=== PATIENT | male | born 1945 | race Hispanic/Latino ===

== ENCOUNTER 2020-10-22 18:48 | Inpatient (IN) | payer MEDICARE ==
[~2020-10-22] VITALS: Ht 157.5 cm; Wt 85.8 kg
[2020-10-22 19:26] LABS: BASOPHILS % (AUTO) 0.3 % (0.0-5.0); EOSINOPHILS % (AUTO) 0.6 % (0.0-8.0); HEMATOCRIT 44.9 % (42-54); LYMPHOCYTES % (AUTO) 5.4 % (21.0-51.0); MEAN CORPUSCULAR HEMOGLOBIN 27.4 pg (27.0-33.0); MEAN CORPUSCULAR HGB CONC 33.9 g/dL (32.0-36.0); MEAN CORPUSCULAR VOLUME 80.9 fL (79-99); MONOCYTES % (AUTO) 6.9 % (3.0-13.0); NEUTROPHILS % (AUTO) 86.3 % (40.0-77.0); PLATELET COUNT (AUTO) 245 K/uL (130-400); RED BLOOD CELL COUNT(AUTO) 5.55 MIL/uL (4.50-6.20); RED CELL DISTRIBUTION WIDTH 16.5 % (11.0-15.5); WHITE BLOOD COUNT (AUTO) 17.1 K/uL (4.8-10.8)
[2020-10-22 19:41] LABS: INR 1.13 (0.85-1.15)
[2020-10-22 19:42] LABS: PARTIAL THROMBOPLASTIN TIME 35.9 SEC (26.3-35.5)
[2020-10-22] MEDS ORDERED: ALBUTEROL INHALER 90MCG/INH IH ONE (19:50)
[2020-10-22 19:59] LABS: CARBON DIOXIDE 22 mmol/L (21-32); CHLORIDE 92 mmol/L (101-111); CREATININE 2.1 mg/dL (0.5-1.5); GLOMERULAR FILTR. RATE CALC 33 mL/min (>60); GLUCOSE,RANDOM 197 mg/dL (70-105); POTASSIUM 4.1 mmol/L (3.5-5.1); SODIUM SERUM 129 mmol/L (136-145); UREA NITROGEN, BLOOD 54 mg/dL (7-18)
[2020-10-22 20:10] LABS: ALANINE AMINOTRANSFERASE 18 U/L (12-78); ALBUMIN 3.1 g/dL (3.5-5.0); ASPARTATE AMINOTRANSFERASE 30 U/L (10-37); BILIRUBIN,TOTAL 0.6 mg/dL (0.2-1.0); CREATINE KINASE, TOTAL 116 U/L (21-232); MYOGLOBIN 204 ng/mL (10-92); TOTAL PROTEIN, SERUM 8.1 g/dL (6.0-8.3); TROPONIN I < 0.04 ng/mL (0.00-0.06)
[2020-10-22] MEDS ORDERED: CEFTRIAXONE 2GM VIAL ONE (20:17)
[2020-10-22] MEDS ORDERED: DEXAMETHASONE SOD PHOSPHATE 10MG/ML 1ML VIAL ONE (20:17)
[2020-10-22] MEDS ORDERED: AZITHROMYCIN 500MG+NS 250ML 250 ML IV ONE (20:17)
[2020-10-22] MEDS ORDERED: 0.9%NACL 50ML 50 ML IV ONE (20:20)
[2020-10-22] MEDS ORDERED: MORPHINE 2 MG SYG ONE (23:09)
[2020-10-23] MEDS ORDERED: PHARMACY COMMUNICATION MISC SCH (00:30)
[2020-10-23 02:04] LABS: APPEARANCE,URINE Clear (CLEAR); BILIRUBIN,URINE Negative (NEGATIVE); COLOR,URINE Yellow (YELLOW); GLUCOSE, URINE (UA) Negative (NEGATIVE); KETONES,URINE Negative (NEGATIVE); LEUKOCYTE ESTERASE ,URINE Negative (NEGATIVE); NITRATE,URINE Negative (NEGATIVE); OCCULT BLOOD,URINE Small (NEGATIVE); PROTEIN,URINE POS 2+ mg/dL (NEGATIVE); UROBILINOGEN,URINE 0.2 mg/dL (0.2-1.0)
[2020-10-23 02:21] LABS: ALBUMIN 2.9 g/dL (3.5-5.0); BILIRUBIN,TOTAL 0.5 mg/dL (0.2-1.0); CREATININE 2.1 mg/dL (0.5-1.5); POTASSIUM 4.9 mmol/L (3.5-5.1); TOTAL PROTEIN, SERUM 7.1 g/dL (6.0-8.3)
[2020-10-23 02:42] LABS: CRP QUANTITATIVE 356.5 mg/L (0.00-9.0)
[2020-10-23 02:51] LABS: BACTERIA,URINE Few /HPF (None Seen); RBC,URINE 0-1 /HPF (0-1); WBC,URINE 0-1 /HPF (0-1)
[2020-10-23 05:06] VITALS: BP 163/70
[2020-10-23] MEDS ORDERED: 0.9% NACL 250ML 250 ML IV ONE (06:26)
[2020-10-23] MEDS ORDERED: HYDRALAZINE 20MG/ML VIAL IV PRN (07:15)
[2020-10-23] MEDS ORDERED: ACETAMINOPHEN 325 MG TAB PO PRN (07:29)
[2020-10-23] MEDS ORDERED: ONDANSETRON 4MG INJ IV PRN (07:30)
[2020-10-23] MEDS ORDERED: 0.9%NACL 1000ML 1,000 ML IV SCH (07:30)
[2020-10-23] MEDS: DOXYCYCLINE 100MG+NS 250ML 250 ML IV SCH ×2 (07:30→21:37)
[2020-10-23] MEDS ORDERED: GUAIFENESIN-CODEINE 5 ML SYRUP PO PRN (07:33)
[2020-10-23] MEDS ORDERED: LUBIPROSTONE 24 MCG CAP PO PRN (07:34)
[2020-10-23] MEDS ORDERED: DEXAMETHASONE SOD PHOSPHATE 4 MG/ML 1ML VIAL IVP SCH (07:45)
[2020-10-23 07:51] VITALS: BP 145/73
[2020-10-23] MEDS ORDERED: ERGOCALCIFEROL (VITAMIN D2) 50,000 UNIT CAPSULE PO SCH (09:00)
[2020-10-23] MEDS: ZINC SULFATE 220 CAPSULE PO SCH (09:55)
[2020-10-23] MEDS: FAMOTIDINE 20MG VIAL IV SCH (09:55)
[2020-10-23] MEDS: ASCORBIC ACID 500 MG TAB PO SCH (09:55)
[2020-10-23] MEDS: ENOXAPARIN SODIUM 40 MG/0.4 ML SYRINGE SQ SCH (09:55)
[2020-10-23] MEDS ORDERED: GLIP10TA9 PO (10:38)
[2020-10-23] MEDS ORDERED: SITA25TA5 PO (10:38)
[2020-10-23] MEDS ORDERED: METF-446 PO (10:38)
[2020-10-23] MEDS ORDERED: ASPI-1197 PO (10:38)
[2020-10-23] MEDS ORDERED: ATEN1TAB4 PO (10:38)
[2020-10-23] MEDS ORDERED: CLOP75TA14 PO (10:38)
[2020-10-23] MEDS ORDERED: ATOR40TA69 PO (10:38)
[2020-10-23] MEDS ORDERED: LOSA100T58 PO (10:38)
[2020-10-23] MEDS: INSULIN HUMULIN R 100 UNIT/ML 3ML SQ SCH ×5 (11:30→21:50)
[2020-10-23] MEDS: CLOPIDOGREL 75MG TAB PO SCH (11:38)
[2020-10-23] MEDS: ATENOLOL 50 MG TABLET PO SCH ×2 (11:38→21:38)
[2020-10-23] MEDS: ASPIRIN 81MG CHEW TAB PO SCH (11:38)
[2020-10-23 11:41] VITALS: BP 185/100
[2020-10-23] MEDS: ACETAMINOPHEN 325 MG TAB PO PRN (13:25)
[2020-10-23 15:58] VITALS: BP 154/86
[2020-10-23] MEDS ORDERED: MORPHINE 2 MG SYG IM ONE (16:30)
[2020-10-23 19:26] VITALS: BP 126/66
[2020-10-23] MEDS ORDERED: ACETAMINOPHEN WITH CODEINE 1 TAB TAB PO PRN (21:15)
[2020-10-23] MEDS ORDERED: LORAZEPAM 2 MG/ML 1 ML VIAL IVP PRN (21:15)
[2020-10-23] MEDS: CEFTRIAXONE 1G VIAL IV SCH (21:37)
[2020-10-23] MEDS: INSULIN GLARGINE 100 UNITS/ML 10 ML VIAL SQ SCH (21:51)
[2020-10-23] MEDS ORDERED: FUROSEMIDE 100MG VIAL IVP STA (23:08)
[2020-10-23] MEDS ORDERED: FENTANYL CITRATE PF 0.05 MG/ML 1,000 MCG in 0.9%NACL 100ML 100 ML IVPB PRN (23:15)
[2020-10-23] MEDS ORDERED: NOREPINEPHRIN 4MG/NS 250ML 250 ML IV PRN (23:15)
[2020-10-23] MEDS ORDERED: MIDAZOLAM 100MG-0.9% NS 100ML 50 ML IV PRN (23:15)
[2020-10-23 23:50] VITALS: BP 145/70
[2020-10-24] VITALS (59 sets, daily range): BP systolic 86–147; BP diastolic 35–70
[2020-10-24 00:41] LABS: ABG BASE EXCESS -7.9 mmol/L (-2.0-3.0); ABG HCO3 19.5 mmol/L (21.0-28.0); ABG OXYGEN SATURATION 91.2 % (95.0-99.0); ABG PCO2 47 mmHg (35-48)
[2020-10-24 00:51] LABS: BASOPHILS % (AUTO) 0.2 % (0.0-5.0); EOSINOPHILS % (AUTO) 0.2 % (0.0-8.0); HEMATOCRIT 47.2 % (42-54); LYMPHOCYTES % (AUTO) 1.6 % (21.0-51.0); MEAN CORPUSCULAR HEMOGLOBIN 26.8 pg (27.0-33.0); MEAN CORPUSCULAR HGB CONC 32.4 g/dL (32.0-36.0); MEAN CORPUSCULAR VOLUME 82.8 fL (79-99); MONOCYTES % (AUTO) 5.7 % (3.0-13.0); NEUTROPHILS % (AUTO) 91.4 % (40.0-77.0); PLATELET COUNT (AUTO) 259 K/uL (130-400); RED CELL DISTRIBUTION WIDTH 16.7 % (11.0-15.5); WHITE BLOOD COUNT (AUTO) 20.3 K/uL (4.8-10.8)
[2020-10-24 04:10] LABS: ABG BASE EXCESS -5.3 mmol/L (-2.0-3.0); ABG OXYGEN SATURATION 96.1 % (95.0-99.0); ABG PCO2 38 mmHg (35-48)
[2020-10-24 04:43] LABS: ALBUMIN 2.6 g/dL (3.5-5.0); BILIRUBIN,TOTAL 0.3 mg/dL (0.2-1.0); CREATININE 2.4 mg/dL (0.5-1.5); POTASSIUM 3.8 mmol/L (3.5-5.1); TOTAL PROTEIN, SERUM 7.3 g/dL (6.0-8.3)
[2020-10-24 05:42] LABS: CRP QUANTITATIVE 275.8 mg/L (0.00-9.0)
[2020-10-24] MEDS: INSULIN HUMULIN R 100 UNIT/ML 3ML SQ SCH ×6 (06:35→17:29)
[2020-10-24] MEDS: DOXYCYCLINE 100MG+NS 250ML 250 ML IV SCH ×2 (08:19→18:41)
[2020-10-24] MEDS: CLOPIDOGREL 75MG TAB PO SCH (08:27)
[2020-10-24] MEDS: ENOXAPARIN SODIUM 40 MG/0.4 ML SYRINGE SQ SCH (08:28)
[2020-10-24] MEDS: ASCORBIC ACID 500 MG TAB PO SCH (08:28)
[2020-10-24] MEDS: FAMOTIDINE 20MG VIAL IV SCH (08:28)
[2020-10-24] MEDS: ASPIRIN 81MG CHEW TAB PO SCH (08:28)
[2020-10-24] MEDS: ATENOLOL 50 MG TABLET PO SCH ×2 (08:39→20:35)
[2020-10-24] MEDS: ZINC SULFATE 220 CAPSULE PO SCH (08:39)
[2020-10-24] MEDS ORDERED: DEXAMETHASONE SOD PHOSPHATE 4 MG/ML 1ML VIAL IVP SCH ×2 (09:00)
[2020-10-24] MEDS: DEXAMETHASONE SOD PHOSPHATE 4 MG/ML 1ML VIAL IVP SCH ×2 (09:47→21:03)
[2020-10-24] MEDS ORDERED: PROPOFOL 1000 MG/100 ML IV SCH (10:00)
[2020-10-24] MEDS: PROPOFOL 1000 MG/100 ML 100 ML IV PRN ×2 (11:13→18:20)
[2020-10-24] MEDS: CEFTRIAXONE 1G VIAL IV SCH (21:03)
[2020-10-25] VITALS (46 sets, daily range): BP systolic 91–185; BP diastolic 35–65
[2020-10-25] MEDS: INSULIN HUMULIN R 100 UNIT/ML 3ML SQ SCH ×7 (00:09→17:10)
[2020-10-25] MEDS: INSULIN GLARGINE 100 UNITS/ML 10 ML VIAL SQ SCH (00:09)
[2020-10-25 03:29] LABS: ABG BASE EXCESS -7.7 mmol/L (-2.0-3.0); ABG OXYGEN SATURATION 93.1 % (95.0-99.0); ABG PCO2 49 mmHg (35-48)
[2020-10-25 04:37] LABS: BASOPHILS % (AUTO) 0.2 % (0.0-5.0); EOSINOPHILS % (AUTO) 0.1 % (0.0-8.0); HEMATOCRIT 42.5 % (42-54); LYMPHOCYTES % (AUTO) 4.1 % (21.0-51.0); MEAN CORPUSCULAR HEMOGLOBIN 26.5 pg (27.0-33.0); MEAN CORPUSCULAR VOLUME 82.8 fL (79-99); MONOCYTES % (AUTO) 4.5 % (3.0-13.0); PLATELET COUNT (AUTO) 256 K/uL (130-400); RED BLOOD CELL COUNT(AUTO) 5.13 MIL/uL (4.50-6.20)
[2020-10-25 05:04] LABS: ALBUMIN 2.2 g/dL (3.5-5.0); BILIRUBIN,TOTAL 0.2 mg/dL (0.2-1.0); CREATININE 3.6 mg/dL (0.5-1.5); POTASSIUM 4.8 mmol/L (3.5-5.1); TOTAL PROTEIN, SERUM 6.6 g/dL (6.0-8.3)
[2020-10-25 06:03] LABS: CRP QUANTITATIVE 379.3 mg/L (0.00-9.0)
[2020-10-25] MEDS: DOXYCYCLINE 100MG+NS 250ML 250 ML IV SCH ×2 (06:33→20:29)
[2020-10-25] MEDS: DEXAMETHASONE SOD PHOSPHATE 4 MG/ML 1ML VIAL IVP SCH ×2 (08:18→20:30)
[2020-10-25] MEDS: FAMOTIDINE 20MG VIAL IV SCH (08:18)
[2020-10-25] MEDS: ZINC SULFATE 220 CAPSULE PO SCH (08:19)
[2020-10-25] MEDS: CLOPIDOGREL 75MG TAB PO SCH (08:19)
[2020-10-25] MEDS: ENOXAPARIN SODIUM 40 MG/0.4 ML SYRINGE SQ SCH (08:19)
[2020-10-25] MEDS: ASPIRIN 81MG CHEW TAB PO SCH (08:19)
[2020-10-25] MEDS: ASCORBIC ACID 500 MG TAB PO SCH (08:19)
[2020-10-25] MEDS: PROPOFOL 1000 MG/100 ML 100 ML IV PRN ×2 (08:24→17:08)
[2020-10-25] MEDS: ATENOLOL 50 MG TABLET PO SCH ×2 (09:00→20:30)
[2020-10-25] MEDS: VECURONIUM 10MG/10ML 50 MG in 0.9%NACL 50ML 50 ML IV SCH (13:04)
[2020-10-25] MEDS: FENTANYL 2500MCG+NS 250ML 250 ML IV SCH (15:02)
[2020-10-25] MEDS: CEFTRIAXONE 1G VIAL IV SCH (20:29)
[2020-10-26] VITALS (38 sets, daily range): BP systolic 104–188; BP diastolic 49–85
[2020-10-26] MEDS: INSULIN HUMULIN R 100 UNIT/ML 3ML SQ SCH ×7 (00:28→17:55)
[2020-10-26] MEDS: INSULIN GLARGINE 100 UNITS/ML 10 ML VIAL SQ SCH (00:30)
[2020-10-26 03:50] LABS: ABG BASE EXCESS -11.2 mmol/L (-2.0-3.0); ABG HCO3 15.3 mmol/L (21.0-28.0); ABG OXYGEN SATURATION 99.7 % (95.0-99.0); ABG PCO2 37 mmHg (35-48)
[2020-10-26 04:52] LABS: BASOPHILS % (AUTO) 0.5 % (0.0-5.0); EOSINOPHILS % (AUTO) 0.1 % (0.0-8.0); LYMPHOCYTES % (AUTO) 7.3 % (21.0-51.0); MEAN CORPUSCULAR HEMOGLOBIN 26.7 pg (27.0-33.0); MEAN CORPUSCULAR HGB CONC 31.6 g/dL (32.0-36.0); MEAN CORPUSCULAR VOLUME 84.6 fL (79-99); MONOCYTES % (AUTO) 9.3 % (3.0-13.0); NEUTROPHILS % (AUTO) 78.5 % (40.0-77.0); PLATELET COUNT (AUTO) 229 K/uL (130-400); RED BLOOD CELL COUNT(AUTO) 5.32 MIL/uL (4.50-6.20); WHITE BLOOD COUNT (AUTO) 17.7 K/uL (4.8-10.8)
[2020-10-26 05:14] LABS: ALBUMIN 2.1 g/dL (3.5-5.0); BILIRUBIN,TOTAL 0.3 mg/dL (0.2-1.0); POTASSIUM 4.8 mmol/L (3.5-5.1); TOTAL PROTEIN, SERUM 6.6 g/dL (6.0-8.3)
[2020-10-26] MEDS: DOXYCYCLINE 100MG+NS 250ML 250 ML IV SCH ×2 (06:16→18:44)
[2020-10-26] MEDS: PROPOFOL 1000 MG/100 ML 100 ML IV PRN ×2 (08:41→15:17)
[2020-10-26] MEDS: ZINC SULFATE 220 CAPSULE PO SCH (08:43)
[2020-10-26] MEDS: ASCORBIC ACID 500 MG TAB PO SCH (08:43)
[2020-10-26] MEDS: VECURONIUM 10MG/10ML 50 MG in 0.9%NACL 50ML 50 ML IV SCH (08:43)
[2020-10-26] MEDS: FAMOTIDINE 20MG VIAL IV SCH (08:44)
[2020-10-26] MEDS: ASPIRIN 81MG CHEW TAB PO SCH (08:44)
[2020-10-26] MEDS: CLOPIDOGREL 75MG TAB PO SCH (08:44)
[2020-10-26] MEDS: DEXAMETHASONE SOD PHOSPHATE 4 MG/ML 1ML VIAL IVP SCH ×2 (08:44→21:42)
[2020-10-26] MEDS: ENOXAPARIN SODIUM 40 MG/0.4 ML SYRINGE SQ SCH ×2 (08:45→21:44)
[2020-10-26] MEDS: ATENOLOL 50 MG TABLET PO SCH ×2 (09:34→21:00)
[2020-10-26 10:32] LABS: INR 1.03 (0.85-1.15)
[2020-10-26 10:33] LABS: PARTIAL THROMBOPLASTIN TIME 32.7 SEC (26.3-35.5)
[2020-10-26] MEDS ORDERED: FUROSEMIDE 40MG VIAL IV SCH (11:30)
[2020-10-26] MEDS: FENTANYL 2500MCG+NS 250ML 250 ML IV SCH (15:15)
[2020-10-26] MEDS: CEFTRIAXONE 1G VIAL IV SCH (21:42)
[2020-10-26] MEDS ORDERED: SODIUM BICARB 50MEQ 50ML VIAL 150 ML ONE (23:40)
[2020-10-26] MEDS ORDERED: SODIUM BICARB 50MEQ 50ML VIAL 50 ML ONE (23:45)
[2020-10-26] MEDS ORDERED: PHARMACY COMMUNICATION MISC SCH (23:45)
[2020-10-27] VITALS (35 sets, daily range): BP systolic 85–132; BP diastolic 40–67
[2020-10-27] MEDS: INSULIN HUMULIN R 100 UNIT/ML 3ML SQ SCH ×7 (00:11→17:06)
[2020-10-27] MEDS: INSULIN GLARGINE 100 UNITS/ML 10 ML VIAL SQ SCH (00:12)
[2020-10-27 03:57] LABS: ABG BASE EXCESS -9.4 mmol/L (-2.0-3.0); ABG HCO3 19.3 mmol/L (21.0-28.0); ABG OXYGEN SATURATION 96.5 % (95.0-99.0); ABG PCO2 52 mmHg (35-48)
[2020-10-27] MEDS: PROPOFOL 1000 MG/100 ML 100 ML IV PRN ×3 (04:12→17:11)
[2020-10-27] MEDS: ENOXAPARIN SODIUM 40 MG/0.4 ML SYRINGE SQ SCH ×2 (08:42→20:52)
[2020-10-27] MEDS: FAMOTIDINE 20MG VIAL IV SCH (08:43)
[2020-10-27] MEDS: CLOPIDOGREL 75MG TAB PO SCH (08:43)
[2020-10-27] MEDS: ATENOLOL 50 MG TABLET PO SCH (08:43)
[2020-10-27] MEDS: ASPIRIN 81MG CHEW TAB PO SCH (08:44)
[2020-10-27] MEDS: ASCORBIC ACID 500 MG TAB PO SCH (08:44)
[2020-10-27] MEDS: DEXAMETHASONE SOD PHOSPHATE 4 MG/ML 1ML VIAL IVP SCH ×2 (08:44→20:52)
[2020-10-27] MEDS: ZINC SULFATE 220 CAPSULE PO SCH (08:44)
[2020-10-27 11:15] LABS: CREATININE 3.6 mg/dL (0.5-1.5); POTASSIUM 4.9 mmol/L (3.5-5.1)
[2020-10-27 12:37] LABS: ABG BASE EXCESS -1.9 mmol/L (-2.0-3.0); ABG OXYGEN SATURATION 93.5 % (95.0-99.0); ABG PCO2 40 mmHg (35-48)
[2020-10-27] MEDS: DOXYCYCLINE 100MG+NS 250ML 250 ML IV SCH ×2 (13:47→20:52)
[2020-10-27] MEDS: PANTOPRAZOLE 40 MG/VIAL IVP SCH (13:47)
[2020-10-27] MEDS: FENTANYL 2500MCG+NS 250ML 250 ML IV SCH (17:31)
[2020-10-27] MEDS: CEFTRIAXONE 1G VIAL IV SCH (20:52)
[2020-10-28] VITALS (33 sets, daily range): BP systolic 82–197; BP diastolic 42–96
[2020-10-28 03:42] LABS: ABG BASE EXCESS -4.1 mmol/L (-2.0-3.0); ABG HCO3 20.5 mmol/L (21.0-28.0); ABG OXYGEN SATURATION 92.2 % (95.0-99.0); ABG PCO2 36 mmHg (35-48)
[2020-10-28 05:55] LABS: BASOPHILS % (AUTO) 0.1 % (0.0-5.0); HEMATOCRIT 40.5 % (42-54); LYMPHOCYTES % (AUTO) 4.8 % (21.0-51.0); MEAN CORPUSCULAR HEMOGLOBIN 26.8 pg (27.0-33.0); MEAN CORPUSCULAR HGB CONC 33.1 g/dL (32.0-36.0); MONOCYTES % (AUTO) 6.8 % (3.0-13.0); NEUTROPHILS % (AUTO) 85.1 % (40.0-77.0); NUCLEATED RED BLOOD CELLS 0.1 % (0.0-0.19); PLATELET COUNT (AUTO) 205 K/uL (130-400); WHITE BLOOD COUNT (AUTO) 16.4 K/uL (4.8-10.8)
[2020-10-28 06:15] LABS: ALBUMIN 1.8 g/dL (3.5-5.0); BILIRUBIN,TOTAL 0.3 mg/dL (0.2-1.0); CRP QUANTITATIVE 51.9 mg/L (0.00-9.0); POTASSIUM 4.6 mmol/L (3.5-5.1); TOTAL PROTEIN, SERUM 5.6 g/dL (6.0-8.3)
[2020-10-28] MEDS: INSULIN HUMULIN R 100 UNIT/ML 3ML SQ SCH ×8 (06:43→21:00)
[2020-10-28] MEDS: DOXYCYCLINE 100MG+NS 250ML 250 ML IV SCH ×2 (06:45→19:37)
[2020-10-28] MEDS: ASCORBIC ACID 500 MG TAB PO SCH (08:36)
[2020-10-28] MEDS: ASPIRIN 81MG CHEW TAB PO SCH (08:36)
[2020-10-28] MEDS: CLOPIDOGREL 75MG TAB PO SCH (08:37)
[2020-10-28] MEDS: ZINC SULFATE 220 CAPSULE PO SCH (08:37)
[2020-10-28] MEDS: DEXAMETHASONE SOD PHOSPHATE 4 MG/ML 1ML VIAL IVP SCH ×2 (08:37→21:15)
[2020-10-28] MEDS: ENOXAPARIN SODIUM 40 MG/0.4 ML SYRINGE SQ SCH ×2 (08:38→21:15)
[2020-10-28] MEDS: PANTOPRAZOLE 40 MG/VIAL IVP SCH (08:38)
[2020-10-28] MEDS: WATER FOR INJECTION STERILE IV SCH ×2 (14:16→22:55)
[2020-10-28] MEDS: SODIUM BICARB IV SCH ×2 (14:16→22:55)
[2020-10-28] MEDS: FENTANYL 2500MCG+NS 250ML 250 ML IV SCH (20:19)
[2020-10-28] MEDS: CEFTRIAXONE 1G VIAL IV SCH (21:15)
[2020-10-28] MEDS: INSULIN GLARGINE 100 UNITS/ML 10 ML VIAL SQ SCH ×2 (21:26)
[2020-10-29] VITALS (52 sets, daily range): BP systolic 102–188; BP diastolic 54–114
[2020-10-29] MEDS: ACETAMINOPHEN 325 MG TAB PO PRN (01:37)
[2020-10-29 04:17] LABS: BASOPHILS % (AUTO) 0.5 % (0.0-5.0); HEMATOCRIT 45.7 % (42-54); LYMPHOCYTES % (AUTO) 3.4 % (21.0-51.0); MEAN CORPUSCULAR HEMOGLOBIN 27.1 pg (27.0-33.0); MEAN CORPUSCULAR HGB CONC 33.5 g/dL (32.0-36.0); MEAN CORPUSCULAR VOLUME 80.9 fL (79-99); MONOCYTES % (AUTO) 5.8 % (3.0-13.0); NEUTROPHILS % (AUTO) 86.2 % (40.0-77.0); NUCLEATED RED BLOOD CELLS 0.1 % (0.0-0.19); PLATELET COUNT (AUTO) 279 K/uL (130-400); RED BLOOD CELL COUNT(AUTO) 5.65 MIL/uL (4.50-6.20); RED CELL DISTRIBUTION WIDTH 17.2 % (11.0-15.5); WHITE BLOOD COUNT (AUTO) 28.1 K/uL (4.8-10.8)
[2020-10-29 04:51] LABS: BILIRUBIN,DIRECT 0.1 mg/dL (0.0-0.3); BILIRUBIN,TOTAL 0.4 mg/dL (0.2-1.0); CREATININE 3.3 mg/dL (0.5-1.5); CRP QUANTITATIVE 46.5 mg/L (0.00-9.0); POTASSIUM 5.2 mmol/L (3.5-5.1)
[2020-10-29] MEDS: PROPOFOL 1000 MG/100 ML 100 ML IV PRN ×3 (04:54→21:11)
[2020-10-29] MEDS: INSULIN HUMULIN R 100 UNIT/ML 3ML SQ SCH ×7 (07:06→20:54)
[2020-10-29] MEDS: DOXYCYCLINE 100MG+NS 250ML 250 ML IV SCH ×2 (07:08→18:51)
[2020-10-29 07:47] LABS: ABG BASE EXCESS 1.8 mmol/L (-2.0-3.0); ABG HCO3 25.2 mmol/L (21.0-28.0); ABG OXYGEN SATURATION 93.7 % (95.0-99.0); ABG PCO2 36 mmHg (35-48)
[2020-10-29] MEDS: PANTOPRAZOLE 40 MG/VIAL IVP SCH (09:52)
[2020-10-29] MEDS: WATER FOR INJECTION STERILE IV SCH (09:52)
[2020-10-29] MEDS: SODIUM BICARB IV SCH (09:52)
[2020-10-29] MEDS: ASPIRIN 81MG CHEW TAB PO SCH (09:53)
[2020-10-29] MEDS: CLOPIDOGREL 75MG TAB PO SCH (09:53)
[2020-10-29] MEDS: ZINC SULFATE 220 CAPSULE PO SCH (09:53)
[2020-10-29] MEDS: ASCORBIC ACID 500 MG TAB PO SCH (09:53)
[2020-10-29] MEDS: DEXAMETHASONE SOD PHOSPHATE 4 MG/ML 1ML VIAL IVP SCH ×2 (09:54→20:22)
[2020-10-29] MEDS: ENOXAPARIN SODIUM 40 MG/0.4 ML SYRINGE SQ SCH ×2 (09:54→20:21)
[2020-10-29] MEDS: CEFTRIAXONE 1G VIAL IV SCH (20:22)
[2020-10-29] MEDS: INSULIN GLARGINE 100 UNITS/ML 10 ML VIAL SQ SCH (20:53)
[2020-10-30] VITALS (42 sets, daily range): BP systolic 85–169; BP diastolic 39–89
[2020-10-30] MEDS: [UNRECOGNIZED DRUG - OTHER] IV SCH ×4 (03:04→21:04)
[2020-10-30] MEDS: DEXMEDETOMIDINE HCL IV SCH ×4 (03:04→21:04)
[2020-10-30 04:39] LABS: BASOPHILS % (AUTO) 0.4 % (0.0-5.0); HEMATOCRIT 44.2 % (42-54); LYMPHOCYTES % (AUTO) 2.7 % (21.0-51.0); MEAN CORPUSCULAR HEMOGLOBIN 26.5 pg (27.0-33.0); MEAN CORPUSCULAR HGB CONC 32.6 g/dL (32.0-36.0); MEAN CORPUSCULAR VOLUME 81.4 fL (79-99); MONOCYTES % (AUTO) 7.3 % (3.0-13.0); NEUTROPHILS % (AUTO) 86.2 % (40.0-77.0); PLATELET COUNT (AUTO) 268 K/uL (130-400); RED BLOOD CELL COUNT(AUTO) 5.43 MIL/uL (4.50-6.20); RED CELL DISTRIBUTION WIDTH 16.9 % (11.0-15.5); WHITE BLOOD COUNT (AUTO) 27.8 K/uL (4.8-10.8)
[2020-10-30 04:57] LABS: ALBUMIN 1.9 g/dL (3.5-5.0); BILIRUBIN,TOTAL 0.3 mg/dL (0.2-1.0); CREATININE 3.2 mg/dL (0.5-1.5); CRP QUANTITATIVE 68.2 mg/L (0.00-9.0); POTASSIUM 4.4 mmol/L (3.5-5.1); TOTAL PROTEIN, SERUM 6.3 g/dL (6.0-8.3)
[2020-10-30] MEDS: DOXYCYCLINE 100MG+NS 250ML 250 ML IV SCH ×2 (06:05→18:38)
[2020-10-30] MEDS: INSULIN HUMULIN R 100 UNIT/ML 3ML SQ SCH ×7 (06:18→20:20)
[2020-10-30] MEDS: DOCUSATE NA 100MG/10ML UDCUP PO SCH (09:34)
[2020-10-30] MEDS: ASPIRIN 81MG CHEW TAB PO SCH (09:35)
[2020-10-30] MEDS: ZINC SULFATE 220 CAPSULE PO SCH (09:35)
[2020-10-30] MEDS: DEXAMETHASONE SOD PHOSPHATE 4 MG/ML 1ML VIAL IVP SCH ×2 (09:35→20:30)
[2020-10-30] MEDS: ASCORBIC ACID 500 MG TAB PO SCH (09:35)
[2020-10-30] MEDS: CLOPIDOGREL 75MG TAB PO SCH (09:35)
[2020-10-30] MEDS: ENOXAPARIN SODIUM 40 MG/0.4 ML SYRINGE SQ SCH ×2 (09:36→20:17)
[2020-10-30] MEDS: POLYETHYLENE GLYCOL 3350 17 GM POWD.PACK GT SCH (09:40)
[2020-10-30] MEDS: SENNOSIDES 8.6 MG TABLET GT SCH (09:41)
[2020-10-30] MEDS: PANTOPRAZOLE 40 MG/VIAL IVP SCH (09:41)
[2020-10-30] MEDS ORDERED: LABETALOL 20MG SYG IV PRN (14:00)
[2020-10-30] MEDS: CEFTRIAXONE 1G VIAL IV SCH (20:17)
[2020-10-30] MEDS: INSULIN GLARGINE 100 UNITS/ML 10 ML VIAL SQ SCH (20:21)
[2020-10-31] VITALS (36 sets, daily range): BP systolic 88–185; BP diastolic 43–94
[2020-10-31 03:23] LABS: ABG HCO3 24.2 mmol/L (21.0-28.0); ABG OXYGEN SATURATION 90.3 % (95.0-99.0); ABG PCO2 31 mmHg (35-48)
[2020-10-31 04:27] LABS: BASOPHILS % (AUTO) 0.3 % (0.0-5.0); HEMATOCRIT 43.8 % (42-54); LYMPHOCYTES % (AUTO) 3.7 % (21.0-51.0); MEAN CORPUSCULAR HEMOGLOBIN 27.1 pg (27.0-33.0); MEAN CORPUSCULAR HGB CONC 32.9 g/dL (32.0-36.0); MEAN CORPUSCULAR VOLUME 82.3 fL (79-99); MONOCYTES % (AUTO) 7.5 % (3.0-13.0); NEUTROPHILS % (AUTO) 85.3 % (40.0-77.0); PLATELET COUNT (AUTO) 270 K/uL (130-400); RED BLOOD CELL COUNT(AUTO) 5.32 MIL/uL (4.50-6.20); RED CELL DISTRIBUTION WIDTH 17.1 % (11.0-15.5); WHITE BLOOD COUNT (AUTO) 26.6 K/uL (4.8-10.8)
[2020-10-31 04:40] LABS: ALBUMIN 1.8 g/dL (3.5-5.0); BILIRUBIN,TOTAL 0.3 mg/dL (0.2-1.0); CREATININE 2.9 mg/dL (0.5-1.5); POTASSIUM 4.1 mmol/L (3.5-5.1)
[2020-10-31] MEDS: INSULIN HUMULIN R 100 UNIT/ML 3ML SQ SCH ×7 (06:19→22:11)
[2020-10-31] MEDS: DOXYCYCLINE 100MG+NS 250ML 250 ML IV SCH ×2 (06:21→18:23)
[2020-10-31] MEDS: DOCUSATE NA 100MG/10ML UDCUP PO SCH (08:26)
[2020-10-31] MEDS: POLYETHYLENE GLYCOL 3350 17 GM POWD.PACK GT SCH (08:26)
[2020-10-31] MEDS: ZINC SULFATE 220 CAPSULE PO SCH (08:26)
[2020-10-31] MEDS: ASPIRIN 81MG CHEW TAB PO SCH (08:26)
[2020-10-31] MEDS: SENNOSIDES 8.6 MG TABLET GT SCH (08:27)
[2020-10-31] MEDS: DEXAMETHASONE SOD PHOSPHATE 4 MG/ML 1ML VIAL IVP SCH ×2 (08:27→20:29)
[2020-10-31] MEDS: ASCORBIC ACID 500 MG TAB PO SCH (08:27)
[2020-10-31] MEDS: CLOPIDOGREL 75MG TAB PO SCH (08:27)
[2020-10-31] MEDS: ENOXAPARIN SODIUM 40 MG/0.4 ML SYRINGE SQ SCH ×2 (08:28→20:31)
[2020-10-31] MEDS: DEXMEDETOMIDINE HCL IV SCH ×2 (08:30→14:42)
[2020-10-31] MEDS: [UNRECOGNIZED DRUG - OTHER] IV SCH ×2 (08:30→14:42)
[2020-10-31] MEDS: PANTOPRAZOLE 40 MG/VIAL IVP SCH (08:31)
[2020-10-31] MEDS: DEXTROSE 5%-WATER 1,000 ML IV SCH (14:20)
[2020-10-31] MEDS: CEFTRIAXONE 1G VIAL IV SCH (20:30)
[2020-10-31] MEDS: INSULIN GLARGINE 100 UNITS/ML 10 ML VIAL SQ SCH (22:10)
[2020-11-01] VITALS (32 sets, daily range): BP systolic 77–131; BP diastolic 38–79
[2020-11-01 03:06] LABS: ABG BASE EXCESS 1.6 mmol/L (-2.0-3.0); ABG HCO3 26.2 mmol/L (21.0-28.0); ABG OXYGEN SATURATION 89.2 % (95.0-99.0); ABG PCO2 41 mmHg (35-48)
[2020-11-01] MEDS: DEXTROSE 5%-WATER 1,000 ML IV SCH ×2 (03:18→20:17)
[2020-11-01 05:38] LABS: BASOPHILS % (AUTO) 0.2 % (0.0-5.0); HEMATOCRIT 41.7 % (42-54); LYMPHOCYTES % (AUTO) 2.4 % (21.0-51.0); MEAN CORPUSCULAR HEMOGLOBIN 26.4 pg (27.0-33.0); MEAN CORPUSCULAR HGB CONC 30.9 g/dL (32.0-36.0); MEAN CORPUSCULAR VOLUME 85.3 fL (79-99); NEUTROPHILS % (AUTO) 87.3 % (40.0-77.0); NUCLEATED RED BLOOD CELLS 0.1 % (0.0-0.19); PLATELET COUNT (AUTO) 275 K/uL (130-400); RED BLOOD CELL COUNT(AUTO) 4.89 MIL/uL (4.50-6.20)
[2020-11-01 05:59] LABS: WHITE BLOOD COUNT (AUTO) 32.3 K/uL (4.8-10.8)
[2020-11-01 06:14] LABS: ALBUMIN 1.5 g/dL (3.5-5.0); BILIRUBIN,TOTAL 0.3 mg/dL (0.2-1.0); POTASSIUM 4.2 mmol/L (3.5-5.1)
[2020-11-01] MEDS: DOXYCYCLINE 100MG+NS 250ML 250 ML IV SCH ×2 (06:22→18:37)
[2020-11-01] MEDS: INSULIN HUMULIN R 100 UNIT/ML 3ML SQ SCH ×7 (06:23→21:26)
[2020-11-01 06:51] LABS: CREATININE 2.9 mg/dL (0.5-1.5); CRP QUANTITATIVE 53.4 mg/L (0.00-9.0); MAGNESIUM 2.5 mg/dL (1.80-2.40); TOTAL PROTEIN, SERUM 4.9 g/dL (6.0-8.3)
[2020-11-01 07:15] LABS: BAND NEUTROPHILS % (MANUAL) 1 % (0-2); MAN.DIFF COMMENT-IMPRESSION MANUAL DIFFERENTIAL; MONOCYTES % (MANUAL) 2 % (2-9); SEGMENTED NEUTROPHILS % 97 % (40-70)
[2020-11-01 07:19] LABS: PLATELET MORPHOLOGY COMMENT ADEQUATE
[2020-11-01] MEDS: DOCUSATE NA 100MG/10ML UDCUP PO SCH (08:39)
[2020-11-01] MEDS: SENNOSIDES 8.6 MG TABLET GT SCH (08:40)
[2020-11-01] MEDS: ZINC SULFATE 220 CAPSULE PO SCH (08:40)
[2020-11-01] MEDS: CLOPIDOGREL 75MG TAB PO SCH (08:40)
[2020-11-01] MEDS: ASCORBIC ACID 500 MG TAB PO SCH (08:40)
[2020-11-01] MEDS: ASPIRIN 81MG CHEW TAB PO SCH (08:41)
[2020-11-01] MEDS: POLYETHYLENE GLYCOL 3350 17 GM POWD.PACK GT SCH (08:41)
[2020-11-01] MEDS: PANTOPRAZOLE 40 MG/VIAL IVP SCH (08:41)
[2020-11-01] MEDS: DEXAMETHASONE SOD PHOSPHATE 4 MG/ML 1ML VIAL IVP SCH ×2 (08:41→20:16)
[2020-11-01] MEDS: ENOXAPARIN SODIUM 40 MG/0.4 ML SYRINGE SQ SCH ×2 (08:42→20:16)
[2020-11-01] MEDS: CEFEPIME HCL 1 GM VIAL IVP SCH (16:33)
[2020-11-01] MEDS: INSULIN GLARGINE 100 UNITS/ML 10 ML VIAL SQ SCH (21:23)
[2020-11-02] VITALS (37 sets, daily range): BP systolic 83–130; BP diastolic 36–70
[2020-11-02] MEDS: CEFEPIME HCL 1 GM VIAL IVP SCH ×2 (02:46→14:09)
[2020-11-02 04:17] LABS: BASOPHILS % (AUTO) 0.3 % (0.0-5.0); HEMATOCRIT 37.1 % (42-54); LYMPHOCYTES % (AUTO) 2.7 % (21.0-51.0); MEAN CORPUSCULAR HEMOGLOBIN 26.9 pg (27.0-33.0); MEAN CORPUSCULAR HGB CONC 31.3 g/dL (32.0-36.0); MEAN CORPUSCULAR VOLUME 86.1 fL (79-99); MONOCYTES % (AUTO) 4.9 % (3.0-13.0); NEUTROPHILS % (AUTO) 89.7 % (40.0-77.0); PLATELET COUNT (AUTO) 262 K/uL (130-400); RED BLOOD CELL COUNT(AUTO) 4.31 MIL/uL (4.50-6.20); RED CELL DISTRIBUTION WIDTH 16.6 % (11.0-15.5)
[2020-11-02 04:29] LABS: WHITE BLOOD COUNT (AUTO) 36.6 K/uL (4.8-10.8)
[2020-11-02 04:37] LABS: ALBUMIN 1.4 g/dL (3.5-5.0); BILIRUBIN,TOTAL 0.3 mg/dL (0.2-1.0); CREATININE 3.6 mg/dL (0.5-1.5); POTASSIUM 4.5 mmol/L (3.5-5.1)
[2020-11-02] MEDS: INSULIN HUMULIN R 100 UNIT/ML 3ML SQ SCH ×7 (06:24→21:00)
[2020-11-02] MEDS: DOCUSATE NA 100MG/10ML UDCUP PO SCH (08:15)
[2020-11-02] MEDS: SENNOSIDES 8.6 MG TABLET GT SCH (08:15)
[2020-11-02] MEDS: CLOPIDOGREL 75MG TAB PO SCH (08:15)
[2020-11-02] MEDS: ASPIRIN 81MG CHEW TAB PO SCH (08:16)
[2020-11-02] MEDS: ZINC SULFATE 220 CAPSULE PO SCH (08:16)
[2020-11-02] MEDS: ASCORBIC ACID 500 MG TAB PO SCH (08:16)
[2020-11-02] MEDS: DEXAMETHASONE SOD PHOSPHATE 4 MG/ML 1ML VIAL IVP SCH ×2 (08:17→21:18)
[2020-11-02] MEDS: ENOXAPARIN SODIUM 40 MG/0.4 ML SYRINGE SQ SCH ×2 (08:21→21:20)
[2020-11-02] MEDS: PANTOPRAZOLE 40 MG/VIAL IVP SCH (08:46)
[2020-11-02 08:50] LABS: ABG BASE EXCESS -1.1 mmol/L (-2.0-3.0); ABG HCO3 24.1 mmol/L (21.0-28.0); ABG OXYGEN SATURATION 91.7 % (95.0-99.0); ABG PCO2 42 mmHg (35-48)
[2020-11-02] MEDS: FLUCONAZOLE 200 MG/NS 100 ML 100 ML IV SCH (15:17)
[2020-11-02] MEDS: LINEZOLID 600 MG/ISO-OSM 300 ML IV SCH (15:17)
[2020-11-02] MEDS ORDERED: DEXMEDETOMIDINE HCL 400 MCG in 0.9%NACL 100ML 100 ML IV SCH (15:30)
[2020-11-02] MEDS: BALSAM PERU/CASTOR OIL 60 GM TUBE TP SCH (21:19)
[2020-11-02] MEDS: INSULIN GLARGINE 100 UNITS/ML 10 ML VIAL SQ SCH (21:23)
[2020-11-03] VITALS (30 sets, daily range): BP systolic 84–149; BP diastolic 17–103
[2020-11-03] MEDS: LINEZOLID 600 MG/ISO-OSM 300 ML IV SCH ×2 (02:41→14:33)
[2020-11-03] MEDS: CEFEPIME HCL 1 GM VIAL IVP SCH ×2 (02:43→14:33)
[2020-11-03 03:21] LABS: ABG BASE EXCESS -1.8 mmol/L (-2.0-3.0); ABG HCO3 22.8 mmol/L (21.0-28.0); ABG OXYGEN SATURATION 92.8 % (95.0-99.0); ABG PCO2 39 mmHg (35-48)
[2020-11-03 05:00] LABS: BASOPHILS % (AUTO) 0.2 % (0.0-5.0); HEMATOCRIT 34.7 % (42-54); LYMPHOCYTES % (AUTO) 2.2 % (21.0-51.0); MEAN CORPUSCULAR HEMOGLOBIN 26.7 pg (27.0-33.0); MEAN CORPUSCULAR HGB CONC 31.4 g/dL (32.0-36.0); MEAN CORPUSCULAR VOLUME 84.8 fL (79-99); MONOCYTES % (AUTO) 2.2 % (3.0-13.0); NEUTROPHILS % (AUTO) 93.3 % (40.0-77.0); PLATELET COUNT (AUTO) 260 K/uL (130-400); RED BLOOD CELL COUNT(AUTO) 4.09 MIL/uL (4.50-6.20); RED CELL DISTRIBUTION WIDTH 16.6 % (11.0-15.5)
[2020-11-03 05:19] LABS: WHITE BLOOD COUNT (AUTO) 32.1 K/uL (4.8-10.8)
[2020-11-03 05:39] LABS: ALBUMIN 1.4 g/dL (3.5-5.0); BILIRUBIN,TOTAL 0.4 mg/dL (0.2-1.0); CREATININE 3.8 mg/dL (0.5-1.5); CRP QUANTITATIVE 90.8 mg/L (0.00-9.0); POTASSIUM 4.8 mmol/L (3.5-5.1)
[2020-11-03] MEDS: INSULIN HUMULIN R 100 UNIT/ML 3ML SQ SCH ×7 (06:23→23:35)
[2020-11-03] MEDS: DOCUSATE NA 100MG/10ML UDCUP PO SCH (08:48)
[2020-11-03] MEDS: ZINC SULFATE 220 CAPSULE PO SCH (08:49)
[2020-11-03] MEDS: ASPIRIN 81MG CHEW TAB PO SCH (08:49)
[2020-11-03] MEDS: ASCORBIC ACID 500 MG TAB PO SCH (08:49)
[2020-11-03] MEDS: SENNOSIDES 8.6 MG TABLET GT SCH (08:50)
[2020-11-03] MEDS: PANTOPRAZOLE 40 MG/VIAL IVP SCH ×2 (08:50→20:56)
[2020-11-03] MEDS: BALSAM PERU/CASTOR OIL 60 GM TUBE TP SCH ×2 (08:51→20:56)
[2020-11-03] MEDS ORDERED: SUCRALFATE 1 GM TABLET PO SCH (11:30)
[2020-11-03] MEDS ORDERED: 0.9%NACL 100ML 100 ML IV ONE (14:31)
[2020-11-03] MEDS: FLUCONAZOLE 200 MG/NS 100 ML 100 ML IV SCH (14:32)
[2020-11-03] MEDS: SUCRALFATE 1 GM TABLET NG SCH ×2 (16:44→20:56)
[2020-11-03] MEDS: INSULIN GLARGINE 100 UNITS/ML 10 ML VIAL SQ SCH (23:35)
[2020-11-04] VITALS (21 sets, daily range): BP systolic 90–145; BP diastolic 42–64
[2020-11-04] MEDS: LINEZOLID 600 MG/ISO-OSM 300 ML IV SCH ×2 (02:19→14:02)
[2020-11-04] MEDS: CEFEPIME HCL 1 GM VIAL IVP SCH ×2 (02:30→14:02)
[2020-11-04 05:10] LABS: ABG BASE EXCESS -1.1 mmol/L (-2.0-3.0); ABG HCO3 22.7 mmol/L (21.0-28.0); ABG OXYGEN SATURATION 90.9 % (95.0-99.0); ABG PCO2 35 mmHg (35-48)
[2020-11-04 05:59] LABS: BASOPHILS % (AUTO) 0.1 % (0.0-5.0); EOSINOPHILS % (AUTO) 0.1 % (0.0-8.0); HEMATOCRIT 33.3 % (42-54); LYMPHOCYTES % (AUTO) 3.2 % (21.0-51.0); MEAN CORPUSCULAR HEMOGLOBIN 26.7 pg (27.0-33.0); MEAN CORPUSCULAR HGB CONC 31.5 g/dL (32.0-36.0); MEAN CORPUSCULAR VOLUME 84.7 fL (79-99); MONOCYTES % (AUTO) 4.2 % (3.0-13.0); NEUTROPHILS % (AUTO) 91.1 % (40.0-77.0); PLATELET COUNT (AUTO) 249 K/uL (130-400); RED BLOOD CELL COUNT(AUTO) 3.93 MIL/uL (4.50-6.20); RED CELL DISTRIBUTION WIDTH 16.3 % (11.0-15.5); WHITE BLOOD COUNT (AUTO) 27.8 K/uL (4.8-10.8)
[2020-11-04] MEDS: SUCRALFATE 1 GM TABLET NG SCH ×4 (06:10→22:33)
[2020-11-04] MEDS: INSULIN HUMULIN R 100 UNIT/ML 3ML SQ SCH ×7 (06:11→22:38)
[2020-11-04 06:27] LABS: ALBUMIN 1.3 g/dL (3.5-5.0); BILIRUBIN,TOTAL 0.3 mg/dL (0.2-1.0); CREATININE 3.8 mg/dL (0.5-1.5); CRP QUANTITATIVE 55.3 mg/L (0.00-9.0); POTASSIUM 4.1 mmol/L (3.5-5.1); TOTAL PROTEIN, SERUM 4.7 g/dL (6.0-8.3)
[2020-11-04] MEDS: ZINC SULFATE 220 CAPSULE PO SCH (08:03)
[2020-11-04] MEDS: ASPIRIN 81MG CHEW TAB PO SCH (08:03)
[2020-11-04] MEDS: PANTOPRAZOLE 40 MG/VIAL IVP SCH ×2 (08:03→22:33)
[2020-11-04] MEDS: ASCORBIC ACID 500 MG TAB PO SCH (08:03)
[2020-11-04] MEDS: BALSAM PERU/CASTOR OIL 60 GM TUBE TP SCH (08:04)
[2020-11-04] MEDS: SENNOSIDES 8.6 MG TABLET GT SCH (08:04)
[2020-11-04] MEDS: DEXAMETHASONE SOD PHOSPHATE 4 MG/ML 1ML VIAL IVP SCH (08:04)
[2020-11-04] MEDS: DOCUSATE NA 100MG/10ML UDCUP PO SCH (08:04)
[2020-11-04] MEDS ORDERED: FUROSEMIDE 40MG VIAL IVP SCH (09:45)
[2020-11-04] MEDS ORDERED: ALBUMIN (HUMAN) 25% 50 ML IV SCH (09:45)
[2020-11-04] MEDS ORDERED: ALBUMIN (HUMAN) 25% 100 ML IV ONE (09:50)
[2020-11-04] MEDS: METOPROLOL TARTRATE 25 MG TAB PO SCH ×2 (10:30→22:33)
[2020-11-04] MEDS: FLUCONAZOLE 200 MG/NS 100 ML 100 ML IV SCH (14:02)
[2020-11-04] MEDS: INSULIN GLARGINE 100 UNITS/ML 10 ML VIAL SQ SCH (22:37)
[2020-11-05] VITALS (25 sets, daily range): BP systolic 103–154; BP diastolic 46–86
[2020-11-05] MEDS: LINEZOLID 600 MG/ISO-OSM 300 ML IV SCH ×2 (02:28→14:04)
[2020-11-05] MEDS: CEFEPIME HCL 1 GM VIAL IVP SCH ×2 (02:28→14:05)
[2020-11-05 03:57] LABS: BASOPHILS % (AUTO) 0.2 % (0.0-5.0); HEMATOCRIT 30.9 % (42-54); LYMPHOCYTES % (AUTO) 2.7 % (21.0-51.0); MEAN CORPUSCULAR HEMOGLOBIN 26.9 pg (27.0-33.0); MONOCYTES % (AUTO) 3.8 % (3.0-13.0); NEUTROPHILS % (AUTO) 91.6 % (40.0-77.0); NUCLEATED RED BLOOD CELLS 0.1 % (0.0-0.19); PLATELET COUNT (AUTO) 239 K/uL (130-400); RED BLOOD CELL COUNT(AUTO) 3.68 MIL/uL (4.50-6.20); RED CELL DISTRIBUTION WIDTH 16.4 % (11.0-15.5)
[2020-11-05 04:21] LABS: ALBUMIN 1.6 g/dL (3.5-5.0); BILIRUBIN,TOTAL 0.6 mg/dL (0.2-1.0); CREATININE 4.1 mg/dL (0.5-1.5); POTASSIUM 4.2 mmol/L (3.5-5.1); TOTAL PROTEIN, SERUM 5.1 g/dL (6.0-8.3)
[2020-11-05 04:28] LABS: ABG HCO3 22.5 mmol/L (21.0-28.0); ABG OXYGEN SATURATION 92.6 % (95.0-99.0); ABG PCO2 34 mmHg (35-48)
[2020-11-05] MEDS: INSULIN HUMULIN R 100 UNIT/ML 3ML SQ SCH ×7 (06:18→20:46)
[2020-11-05] MEDS: SUCRALFATE 1 GM TABLET NG SCH ×4 (06:18→20:42)
[2020-11-05] MEDS: PANTOPRAZOLE 40 MG/VIAL IVP SCH ×2 (08:27→20:42)
[2020-11-05] MEDS: ASPIRIN 81MG CHEW TAB PO SCH (08:27)
[2020-11-05] MEDS: ASCORBIC ACID 500 MG TAB PO SCH (08:27)
[2020-11-05] MEDS: ZINC SULFATE 220 CAPSULE PO SCH (08:27)
[2020-11-05] MEDS: SENNOSIDES 8.6 MG TABLET GT SCH (08:27)
[2020-11-05] MEDS: METOPROLOL TARTRATE 25 MG TAB PO SCH ×2 (08:28→20:42)
[2020-11-05] MEDS: DEXAMETHASONE SOD PHOSPHATE 4 MG/ML 1ML VIAL IVP SCH (08:28)
[2020-11-05] MEDS: BALSAM PERU/CASTOR OIL 60 GM TUBE TP SCH ×2 (08:29→20:46)
[2020-11-05] MEDS: DOCUSATE NA 100MG/10ML UDCUP PO SCH (08:29)
[2020-11-05 10:59] LABS: ABG BASE EXCESS -4.8 mmol/L (-2.0-3.0); ABG HCO3 19.6 mmol/L (21.0-28.0); ABG OXYGEN SATURATION 95.4 % (95.0-99.0); ABG PCO2 35 mmHg (35-48)
[2020-11-05] MEDS: FLUCONAZOLE 200 MG/NS 100 ML 100 ML IV SCH (13:49)
[2020-11-05] MEDS: INSULIN GLARGINE 100 UNITS/ML 10 ML VIAL SQ SCH (20:45)
[2020-11-06] VITALS (24 sets, daily range): BP systolic 104–163; BP diastolic 44–89
[2020-11-06] MEDS: CEFEPIME HCL 1 GM VIAL IVP SCH ×2 (03:26→14:16)
[2020-11-06] MEDS: LINEZOLID 600 MG/ISO-OSM 300 ML IV SCH ×2 (03:26→14:16)
[2020-11-06 05:34] LABS: BASOPHILS % (AUTO) 0.1 % (0.0-5.0); HEMATOCRIT 31.4 % (42-54); LYMPHOCYTES % (AUTO) 2.9 % (21.0-51.0); MEAN CORPUSCULAR HEMOGLOBIN 26.8 pg (27.0-33.0); MEAN CORPUSCULAR HGB CONC 31.2 g/dL (32.0-36.0); MONOCYTES % (AUTO) 3.5 % (3.0-13.0); NEUTROPHILS % (AUTO) 92.2 % (40.0-77.0); PLATELET COUNT (AUTO) 224 K/uL (130-400); RED BLOOD CELL COUNT(AUTO) 3.65 MIL/uL (4.50-6.20); RED CELL DISTRIBUTION WIDTH 16.8 % (11.0-15.5); WHITE BLOOD COUNT (AUTO) 23.7 K/uL (4.8-10.8)
[2020-11-06 05:49] LABS: POTASSIUM 4.3 mmol/L (3.5-5.1)
[2020-11-06] MEDS: INSULIN HUMULIN R 100 UNIT/ML 3ML SQ SCH ×7 (06:24→21:14)
[2020-11-06] MEDS: SUCRALFATE 1 GM TABLET NG SCH ×4 (06:24→21:02)
[2020-11-06] MEDS: PANTOPRAZOLE 40 MG/VIAL IVP SCH ×2 (08:49→21:02)
[2020-11-06] MEDS: DEXAMETHASONE 4 MG TAB NG SCH (08:49)
[2020-11-06] MEDS: ASCORBIC ACID 500 MG TAB PO SCH (08:49)
[2020-11-06] MEDS: DOCUSATE NA 100MG/10ML UDCUP PO SCH (08:50)
[2020-11-06] MEDS: METOPROLOL TARTRATE 25 MG TAB PO SCH ×2 (08:50→21:02)
[2020-11-06] MEDS: ZINC SULFATE 220 CAPSULE PO SCH (08:50)
[2020-11-06] MEDS: SENNOSIDES 8.6 MG TABLET GT SCH (08:50)
[2020-11-06] MEDS: ASPIRIN 81MG CHEW TAB PO SCH (08:50)
[2020-11-06] MEDS: BALSAM PERU/CASTOR OIL 60 GM TUBE TP SCH ×2 (08:51→21:03)
[2020-11-06] MEDS: FLUCONAZOLE 200 MG/NS 100 ML 100 ML IV SCH (13:32)
[2020-11-06] MEDS: INSULIN GLARGINE 100 UNITS/ML 10 ML VIAL SQ SCH (21:13)
[2020-11-07] VITALS (23 sets, daily range): BP systolic 106–139; BP diastolic 47–75
[2020-11-07] MEDS: CEFEPIME HCL 1 GM VIAL IVP SCH ×2 (02:43→14:30)
[2020-11-07] MEDS: LINEZOLID 600 MG/ISO-OSM 300 ML IV SCH ×2 (02:44→14:30)
[2020-11-07 05:00] LABS: BASOPHILS % (AUTO) 0.1 % (0.0-5.0); HEMATOCRIT 30.6 % (42-54); LYMPHOCYTES % (AUTO) 2.9 % (21.0-51.0); MEAN CORPUSCULAR HEMOGLOBIN 26.5 pg (27.0-33.0); MEAN CORPUSCULAR HGB CONC 30.4 g/dL (32.0-36.0); MEAN CORPUSCULAR VOLUME 87.2 fL (79-99); MONOCYTES % (AUTO) 2.3 % (3.0-13.0); NEUTROPHILS % (AUTO) 93.7 % (40.0-77.0); PLATELET COUNT (AUTO) 222 K/uL (130-400); RED BLOOD CELL COUNT(AUTO) 3.51 MIL/uL (4.50-6.20); RED CELL DISTRIBUTION WIDTH 17.2 % (11.0-15.5); WHITE BLOOD COUNT (AUTO) 22.7 K/uL (4.8-10.8)
[2020-11-07 05:52] LABS: CRP QUANTITATIVE 38.2 mg/L (0.00-9.0); POTASSIUM 4.5 mmol/L (3.5-5.1)
[2020-11-07] MEDS: SUCRALFATE 1 GM TABLET NG SCH ×4 (06:36→21:41)
[2020-11-07] MEDS: INSULIN HUMULIN R 100 UNIT/ML 3ML SQ SCH ×7 (06:43→19:48)
[2020-11-07] MEDS: SENNOSIDES 8.6 MG TABLET GT SCH (08:02)
[2020-11-07] MEDS: DOCUSATE NA 100MG/10ML UDCUP PO SCH (08:02)
[2020-11-07] MEDS: METOPROLOL TARTRATE 25 MG TAB PO SCH ×2 (08:54→21:41)
[2020-11-07] MEDS: PANTOPRAZOLE 40 MG/VIAL IVP SCH ×2 (08:54→21:43)
[2020-11-07] MEDS: ZINC SULFATE 220 CAPSULE PO SCH (08:54)
[2020-11-07] MEDS: ASCORBIC ACID 500 MG TAB PO SCH (08:54)
[2020-11-07] MEDS: DEXAMETHASONE 4 MG TAB NG SCH (08:55)
[2020-11-07] MEDS: BALSAM PERU/CASTOR OIL 60 GM TUBE TP SCH ×2 (08:55→21:41)
[2020-11-07] MEDS: ASPIRIN 81MG CHEW TAB PO SCH (08:56)
[2020-11-07] MEDS: FLUCONAZOLE 200 MG/NS 100 ML 100 ML IV SCH (13:39)
[2020-11-07] MEDS: INSULIN GLARGINE 100 UNITS/ML 10 ML VIAL SQ SCH (21:15)
[2020-11-08] VITALS (77 sets, daily range): BP systolic 59–140; BP diastolic 25–108
[2020-11-08] MEDS: LINEZOLID 600 MG/ISO-OSM 300 ML IV SCH ×2 (02:53→15:25)
[2020-11-08] MEDS: CEFEPIME HCL 1 GM VIAL IVP SCH ×2 (02:53→15:26)
[2020-11-08 06:23] LABS: BASOPHILS % (AUTO) 0.1 % (0.0-5.0); HEMATOCRIT 27.1 % (42-54); LYMPHOCYTES % (AUTO) 3.1 % (21.0-51.0); MEAN CORPUSCULAR HEMOGLOBIN 27.9 pg (27.0-33.0); MEAN CORPUSCULAR HGB CONC 31.7 g/dL (32.0-36.0); MONOCYTES % (AUTO) 2.4 % (3.0-13.0); NEUTROPHILS % (AUTO) 93.2 % (40.0-77.0); NUCLEATED RED BLOOD CELLS 0.1 % (0.0-0.19); PLATELET COUNT (AUTO) 190 K/uL (130-400); RED BLOOD CELL COUNT(AUTO) 3.08 MIL/uL (4.50-6.20); RED CELL DISTRIBUTION WIDTH 17.3 % (11.0-15.5); WHITE BLOOD COUNT (AUTO) 22.6 K/uL (4.8-10.8)
[2020-11-08] MEDS: SUCRALFATE 1 GM TABLET NG SCH ×4 (06:24→20:05)
[2020-11-08] MEDS: INSULIN HUMULIN R 100 UNIT/ML 3ML SQ SCH ×7 (06:25→21:06)
[2020-11-08 06:49] LABS: CREATININE 4.2 mg/dL (0.5-1.5); POTASSIUM 4.8 mmol/L (3.5-5.1)
[2020-11-08] MEDS: DOCUSATE NA 100MG/10ML UDCUP PO SCH (08:45)
[2020-11-08] MEDS: SENNOSIDES 8.6 MG TABLET GT SCH (08:56)
[2020-11-08] MEDS: ZINC SULFATE 220 CAPSULE PO SCH ×2 (09:00→09:24)
[2020-11-08] MEDS: METOPROLOL TARTRATE 25 MG TAB PO SCH ×2 (09:00→19:23)
[2020-11-08] MEDS: ASPIRIN 81MG CHEW TAB PO SCH ×2 (09:00→09:24)
[2020-11-08] MEDS: DEXAMETHASONE 4 MG TAB NG SCH ×2 (09:00→09:24)
[2020-11-08] MEDS: ASCORBIC ACID 500 MG TAB PO SCH ×2 (09:00→09:24)
[2020-11-08] MEDS: ALBUMIN (HUMAN) 25% 50 ML IV SCH ×2 (09:21→19:58)
[2020-11-08] MEDS: PANTOPRAZOLE 40 MG/VIAL IVP SCH (09:23)
[2020-11-08] MEDS: BALSAM PERU/CASTOR OIL 60 GM TUBE TP SCH ×2 (09:25→22:00)
[2020-11-08] MEDS ORDERED: NOREPINEPHRINE BITARTRATE 8 MG in 0.9% NACL 250ML 250 ML IV SCH (09:45)
[2020-11-08] MEDS ORDERED: LACTATED RINGERS 1000ML IV SCH (09:45)
[2020-11-08] MEDS ORDERED: LACTATED RINGERS 1000ML 1,000 ML IV ONE (09:50)
[2020-11-08] MEDS: PANTOPRAZOLE 40MG INJ 80 MG in 0.9%NACL 100ML 100 ML IVP SCH ×2 (10:00→18:26)
[2020-11-08] MEDS ORDERED: PANTOPRAZOLE 40 MG/VIAL IV SCH (10:00)
[2020-11-08] MEDS ORDERED: PANTOPRAZOLE 40MG INJ 80 MG in 0.9%NACL 100ML 100 ML IVP SCH (10:00)
[2020-11-08 10:01] LABS: INR 1.04 (0.85-1.15); PROTHROMBIN TIME 11.3 SEC (9.6-11.6)
[2020-11-08] MEDS: DESMOPRESSIN IJ SCH (10:16)
[2020-11-08] MEDS: [UNRECOGNIZED DRUG - OTHER] IJ SCH (10:16)
[2020-11-08 10:19] LABS: HEMATOCRIT 21.8 % (42-54); LYMPHOCYTES % (AUTO) 2.7 % (21.0-51.0); MEAN CORPUSCULAR HEMOGLOBIN 27.3 pg (27.0-33.0); MEAN CORPUSCULAR HGB CONC 30.7 g/dL (32.0-36.0); MONOCYTES % (AUTO) 2.8 % (3.0-13.0); NEUTROPHILS % (AUTO) 93.7 % (40.0-77.0); NUCLEATED RED BLOOD CELLS 0.1 % (0.0-0.19); PLATELET COUNT (AUTO) 179 K/uL (130-400); RED BLOOD CELL COUNT(AUTO) 2.45 MIL/uL (4.50-6.20); RED CELL DISTRIBUTION WIDTH 17.2 % (11.0-15.5); WHITE BLOOD COUNT (AUTO) 21.2 K/uL (4.8-10.8)
[2020-11-08] MEDS: FAMOTIDINE 20MG VIAL IV SCH (10:20)
[2020-11-08] MEDS: DEXTROSE 5%-LACTATED RINGERS 1,000 ML IV SCH ×2 (10:21→22:00)
[2020-11-08] MEDS ORDERED: RENAL DOSE IV ONE (10:45)
[2020-11-08] MEDS ORDERED: 0.9% NACL 500ML IV.SOLN 500 ML IV ONE (10:54)
[2020-11-08] MEDS ORDERED: PEG 3350/NA SULF,BICARB,CL/KCL 4000 ML SOLN PO SCH (11:00)
[2020-11-08] MEDS ORDERED: PHENYLEPHRINE HCL 100 MG in 0.9% NACL 250ML 250 ML IV SCH (11:30)
[2020-11-08] MEDS: FLUCONAZOLE 200 MG/NS 100 ML 100 ML IV SCH (13:47)
[2020-11-08] MEDS ORDERED: OCTREOTIDE ACETATE 500 MCG in 0.9%NACL 100ML 97.5 ML IV SCH (14:15)
[2020-11-08] MEDS ORDERED: OCTREOTIDE ACETATE 100 MCG/ML AMP IV SCH (14:15)
[2020-11-08] MEDS: FUROSEMIDE 20MG VIAL IV SCH (20:30)
[2020-11-08 20:34] LABS: INR 1.06 (0.85-1.15); PROTHROMBIN TIME 11.5 SEC (9.6-11.6)
[2020-11-08] MEDS: INSULIN GLARGINE 100 UNITS/ML 10 ML VIAL SQ SCH (21:07)
[2020-11-08 23:51] LABS: BASOPHILS % (AUTO) 0.2 % (0.0-5.0); HEMATOCRIT 34.5 % (42-54); LYMPHOCYTES % (AUTO) 2.1 % (21.0-51.0); MEAN CORPUSCULAR HEMOGLOBIN 29.2 pg (27.0-33.0); MONOCYTES % (AUTO) 2.6 % (3.0-13.0); NEUTROPHILS % (AUTO) 93.5 % (40.0-77.0); NUCLEATED RED BLOOD CELLS 0.5 % (0.0-0.19); PLATELET COUNT (AUTO) 186 K/uL (130-400); RED BLOOD CELL COUNT(AUTO) 3.67 MIL/uL (4.50-6.20); RED CELL DISTRIBUTION WIDTH 16.7 % (11.0-15.5)
[2020-11-08 23:54] LABS: WHITE BLOOD COUNT (AUTO) 36.7 K/uL (4.8-10.8)
[2020-11-09] VITALS (23 sets, daily range): BP systolic 74–119; BP diastolic 28–71
[2020-11-09 02:05] LABS: BAND NEUTROPHILS % (MANUAL) 2 % (0-2); LYMPHOCYTES % (MANUAL) 2 % (22-44); MAN.DIFF COMMENT-IMPRESSION MANUAL DIFFERENTIAL; MONOCYTES % (MANUAL) 6 % (2-9); PLATELET MORPHOLOGY COMMENT ADEQUATE; SEGMENTED NEUTROPHILS % 90 % (40-70)
[2020-11-09 03:57] LABS: ABG BASE EXCESS -15.5 mmol/L (-2.0-3.0); ABG HCO3 17.3 mmol/L (21.0-28.0); ABG PCO2 74 mmHg (35-48)
[2020-11-09] MEDS: CEFEPIME HCL 1 GM VIAL IVP SCH (04:17)
[2020-11-09] MEDS: LINEZOLID 600 MG/ISO-OSM 300 ML IV SCH (04:17)
[2020-11-09] MEDS ORDERED: SODIUM BICARB 50MEQ 50ML VIAL 50 ML ONE (04:41)
[2020-11-09] MEDS ORDERED: SODIUM BICARB 50MEQ 50ML VIAL IV ONE (04:45)
[2020-11-09] MEDS: SUCRALFATE 1 GM TABLET NG SCH (04:52)
[2020-11-09] MEDS: INSULIN HUMULIN R 100 UNIT/ML 3ML SQ SCH ×2 (05:43→06:26)
[2020-11-09 06:07] LABS: BASOPHILS % (AUTO) 0.2 % (0.0-5.0); HEMATOCRIT 30.4 % (42-54); LYMPHOCYTES % (AUTO) 2.3 % (21.0-51.0); MEAN CORPUSCULAR HEMOGLOBIN 28.9 pg (27.0-33.0); MEAN CORPUSCULAR HGB CONC 31.6 g/dL (32.0-36.0); MEAN CORPUSCULAR VOLUME 91.6 fL (79-99); MONOCYTES % (AUTO) 2.3 % (3.0-13.0); NEUTROPHILS % (AUTO) 93.2 % (40.0-77.0); NUCLEATED RED BLOOD CELLS 0.7 % (0.0-0.19); PLATELET COUNT (AUTO) 161 K/uL (130-400); RED BLOOD CELL COUNT(AUTO) 3.32 MIL/uL (4.50-6.20); RED CELL DISTRIBUTION WIDTH 16.6 % (11.0-15.5)
[2020-11-09 06:13] LABS: WHITE BLOOD COUNT (AUTO) 38.1 K/uL (4.8-10.8)
[2020-11-09 06:28] LABS: ALBUMIN 1.8 g/dL (3.5-5.0); BILIRUBIN,TOTAL 0.3 mg/dL (0.2-1.0); CREATININE 5.1 mg/dL (0.5-1.5); POTASSIUM 5.1 mmol/L (3.5-5.1); TOTAL PROTEIN, SERUM 4.5 g/dL (6.0-8.3)
[2020-11-09] MEDS: SENNOSIDES 8.6 MG TABLET GT SCH (08:10)
[2020-11-09] MEDS: DOCUSATE NA 100MG/10ML UDCUP PO SCH (08:10)
[2020-11-09] MEDS: METOPROLOL TARTRATE 25 MG TAB PO SCH (09:00)
[2020-11-09] MEDS: ASCORBIC ACID 500 MG TAB PO SCH (09:00)
[2020-11-09] MEDS: ZINC SULFATE 220 CAPSULE PO SCH (09:00)
[2020-11-09] MEDS: [UNRECOGNIZED DRUG - OTHER] IJ SCH (09:00)
[2020-11-09] MEDS: DEXAMETHASONE 4 MG TAB NG SCH (09:00)
[2020-11-09] MEDS: DESMOPRESSIN IJ SCH (09:00)
[2020-11-09] MEDS: ASPIRIN 81MG CHEW TAB PO SCH (09:00)
[2020-11-09] MEDS ORDERED: PHARMACY COMMUNICATION MISC SCH (09:30)
[2020-11-09] MEDS: FAMOTIDINE 20MG VIAL IV SCH (09:38)
[2020-11-09] MEDS ORDERED: MORPHINE PCA 50MG/50ML 50 ML IV PRN (10:00)
== END 2020-11-09 18:24 | disposition expired | DRG 870 ==
LOC: EDH 18:48 → EDHIP 10-23 00:10 → UNDOADMIN 10-23 00:10 → 2DH 10-23 04:00 → EDHIP 10-23 04:00 → 2DH 10-23 23:30 → 2CV 10-23 23:30 → 2DH 10-24 00:01 → 2CV 10-24 00:01
PROVIDERS: ADMIT Internal Medicine; ATTEND Internal Medicine
PROC: XW13325 Transfusion of Convalescent Plasma (Nonautologous) into Peripheral Vein, Percutaneous Approach, New Technology Group 5 (ICD-10-PCS; 2020-10-23)
PROC: 5A1955Z Respiratory Ventilation, Greater than 96 Consecutive Hours (ICD-10-PCS; principal; 2020-10-24)
PROC: 0BH17EZ Insertion of Endotracheal Airway into Trachea, Via Natural or Artificial Opening (ICD-10-PCS; 2020-10-24)
PROC: 02H633Z Insertion of Infusion Device into Right Atrium, Percutaneous Approach (ICD-10-PCS; 2020-10-26)
PROC: B548ZZA Ultrasonography of Superior Vena Cava, Guidance (ICD-10-PCS; 2020-10-26)
PROC: 5A09357 Assistance with Respiratory Ventilation, Less than 24 Consecutive Hours, Continuous Positive Airway Pressure (ICD-10-PCS; 2020-11-01)
PROC: 5A09357 Assistance with Respiratory Ventilation, Less than 24 Consecutive Hours, Continuous Positive Airway Pressure (ICD-10-PCS; 2020-11-06)
PROC: 5A09357 Assistance with Respiratory Ventilation, Less than 24 Consecutive Hours, Continuous Positive Airway Pressure (ICD-10-PCS; 2020-11-07)
PROC: 30233N1 Transfusion of Nonautologous Red Blood Cells into Peripheral Vein, Percutaneous Approach (ICD-10-PCS; 2020-11-08)
PROC: 5A09357 Assistance with Respiratory Ventilation, Less than 24 Consecutive Hours, Continuous Positive Airway Pressure (ICD-10-PCS; 2020-11-09)
PROC: 5A0935A Assistance with Respiratory Ventilation, Less than 24 Consecutive Hours, High Flow/Velocity Cannula (ICD-10-PCS; 2020-11-09)
DX: A41.9 Sepsis, unspecified organism (principal); U07.1 COVID-19; J12.82 Pneumonia due to coronavirus disease 2019; E43 Unspecified severe protein-calorie malnutrition; G93.41 Metabolic encephalopathy; J80 Acute respiratory distress syndrome; D68.59 Other primary thrombophilia; E87.1 Hypo-osmolality and hyponatremia; N17.9 Acute kidney failure, unspecified; M62.82 Rhabdomyolysis; E87.2 Acidosis; E87.0 Hyperosmolality and hypernatremia; D62 Acute posthemorrhagic anemia; J81.1 Chronic pulmonary edema; K92.2 Gastrointestinal hemorrhage, unspecified; Z79.01 Long term (current) use of anticoagulants; E87.8 Other disorders of electrolyte and fluid balance, not elsewhere classified; E11.22 Type 2 diabetes mellitus with diabetic chronic kidney disease; E66.01 Morbid (severe) obesity due to excess calories; Z68.34 Body mass index [BMI] 34.0-34.9, adult; E78.5 Hyperlipidemia, unspecified; E87.70 Fluid overload, unspecified; I12.9 Hypertensive chronic kidney disease with stage 1 through stage 4 chronic kidney disease, or unspecified chronic kidney disease; N18.9 Chronic kidney disease, unspecified; R57.8 Other shock; R13.12 Dysphagia, oropharyngeal phase; Z66 Do not resuscitate; Z83.3 Family history of diabetes mellitus; Z87.01 Personal history of pneumonia (recurrent); Z90.49 Acquired absence of other specified parts of digestive tract; Z93.1 Gastrostomy status; Z88.6 Allergy status to analgesic agent; Z88.0 Allergy status to penicillin; Z88.8 Allergy status to other drugs, medicaments and biological substances; E88.09 Other disorders of plasma-protein metabolism, not elsewhere classified
CPT/HCPCS: 31500; 36415; 36430; 36600; 70450; 71045; 74018; 76705; 80048; 80053; 81001; 82140; 82248; 82270; 82550; 82728; 82803; 82948; 83605; 83615; 83735; 83874; 83880; 84145; 84484; 85025; 85378; 85610; 85730; 86140; 86850; 86900; 86901; 86923; 86927; 87040; 87071; 87088; 87205; 87426; 87493; 93005; 93306; 93356; 94002; 94003; 94640; 94660; A4344; C9113; G0378; J0360; J0456; J0692; J0696; J1100; J1450; J1650; J1815; J1940; J2020; J2060; J2270; J2354; J2370; J2597; J2704; J3010; J3490; J7030; J7040; J7050; J7070; J7120; J8540; P9016; P9046; P9047